=== PATIENT | female | born 1960 | race Caucasian/White ===

== ENCOUNTER 2016-08-14 13:52 | Emergency (ER) | payer OTHER ==
[2016-08-14 14:03] VITALS: RESP 16
--- NOTE | 2016-08-14 14:20 | EDPHY ---
H & P Stated Complaint: right foot and toe pain HPI/ROS: CHIEF COMPLAINT: Right small toe pain HISTORY OF PRESENT ILLNESS: This is a 55-year-old female who struck her foot on a long board less than 3 hours ago. She has right small toe pain and swelling that has not improved since the accident. She also describes some pain along the lateral aspect of her right foot. She has not taken any pain medication. She has tried elevating her foot, to no avail. She has pain with weight-bearing. She denies numbness or weakness. There were no other injuries. REVIEW OF SYSTEMS: A ten point review of systems was performed and is negative with the exception of the items mentioned in the HPI. - Personal History LMP (Females 10-55): Post Menopausal Current Tetanus Diphtheria and Acellular Pertussis (TDAP): Yes Tetanus Vaccine Date: within 10 years - Medical/Surgical History Hx Asthma: Yes Hx Chronic Respiratory Disease: No Hx Diabetes: No Hx Cardiac Disease: No Hx Renal Disease: No Hx Cirrhosis: No Hx Alcoholism: No Hx HIV/AIDS: No Hx Splenectomy or Spleen Trauma: No Other PMH: ASTHMA, occular hypertension - Social History Smoking Status: Never smoked Alcohol Use: Occasionally Additional Social History: She works in real estate. - Physical Exam Exam: General Appearance: Alert. Vital signs reviewed. Focused physical exam was performed. Blood pressure at triage was 142/97. Respiratory: Lungs are clear to auscultation; no wheezes, rales, or rhonchi. Cardiovascular: Regular rate and rhythm; no murmur, rub, or gallop. Skin: Warm and dry, no rashes on exposed skin, normal color. Back: Nontender to palpation over the thoracolumbar spine. Extremities: No pain to palpation of right hip, thigh, knee, tib/fib, ankle. Full active range of motion of the right knee and ankle. There is tenderness and swelling of the right small toe. Pulses: 2+ dorsalis pedis pulses bilaterally. Neurological: Alert and oriented. Moving all four extremities easily and equally. Sensation is normal to light touch over both lower extremities with the exception of a slight decrease in light touch over the lateral aspect of her right foot. Psychiatric: Normal affect. Constitutional: Initial Vital Signs Heart Rate 66 08/14/16 13:58 Respiratory Rate 16 08/14/16 13:58 Blood Pressure 142/97 H 08/14/16 13:58 O2 Sat (%) 98 08/14/16 13:58 O2 Delivery Mode Room Air Allergies/Adverse Reactions: codeine [Codeine] Allergy (Severe, Verified 08/14/16 14:02) Sulfa (Sulfonamide Antibiotics) [Sulfa(Sulfonamide Antibiotics)] Allergy ( Unknown, Verified 08/14/16 14:02) amoxicillin trihydrate [From Augmentin] Allergy (Verified 08/14/16 14:02) Androgenic Anabolic Steroid Allergy (Verified 08/14/16 14:02) cefprozil [From Cefzil] Allergy (Verified 08/14/16 14:02) VOMITS cephapirin sodium [From Cefadyl] Allergy (Verified 08/14/16 14:02) VOMITS erythromycin base [Erythromycin Base] Allergy (Verified 08/14/16 14:02) VOMITS potassium clavulanate [From Augmentin] Allergy (Verified 08/14/16 14:02) steroids Allergy (Uncoded 08/14/16 14:03) Home Medications: Medication Instructions Recorded Montelukast Sodium [Singulair] 5 mg PO 01/10/12 Eye Drops For Pressure 08/14/16 Nasal [place] 08/14/16 Medical Decision Making - Diagnostics Imaging Results: Imaging Impressions Foot X-Ray 08/14/16 14:08 Impression: Middle phalangeal fracture, fifth toe. ED Course/Re-evaluation: Right foot x-ray shows a fracture of the fifth toe, middle phalanx on the right. There is mild angulation, no displacement. 4th and 5th toes we edvin-taped. A postop shoe is being provided. She has seen Dr. Wheatley, podiatry, in the past and will likely follow up with either him or her primary care provider. Differential Diagnosis: I considered fracture, either open or closed, dislocation, sprain, contusion, and abrasion. Departure - Departure Disposition: Home, Routine, Self-Care Clinical Impression: Toe fracture, right Qualifiers: Encounter type: initial encounter Toe: lesser toe Fracture type: closed Phalanx : proximal Physeal involvement: not involving physis Qualified Code(s): S92.511A - Displaced fracture of proximal phalanx of right lesser toe(s), initial encounter for closed fracture Condition: Good Instructions: Toe Fracture (ED), RICE Therapy (ED) Additional Instructions: Adult Pain & Fever Control: We recommend Acetaminophen (Tylenol) and Ibuprofen (Motrin,Advil) for pain and fever control. When fever is high or pain severe, both drugs can be used at the same time, but at different intervals. Please note the time differences. Your dose is: Acetaminophen 650mg every 4 to 6 hours Ibuprofen 400mg every 8 hours with food OR . Note: do not take Acetaminophen with Hydrocodone (Vicodin, Lortab) or Oycodone (Percocet). These medications also contain Acetaminophen. No more than 3000mg of Acetaminophen should be taken in 24 hours (for an adult). You should follow up with your primary care physician. I am also providing a referral to a instructional support services director, to use if needed. Referrals: Helena Teran MD [Primary Care Provider] - As per Instructions Clifford Wheatley DPM [Doctor of Podiatric Medicine] - As per Instructions
[2016-08-14] MEDS ORDERED: IBUPROFEN 600 MG TAB PO ONE (15:03)
[2016-08-14 15:04] VITALS: BP 136/91; PULSE 61; TEMP 97.9; O2SAT 96
== END 2016-08-14 15:03 | disposition home or self-care (01) ==
LOC: CED 13:52
DX: S92.511A Displaced fracture of proximal phalanx of right lesser toe(s), initial encounter for closed fracture (principal); J45.909 Unspecified asthma, uncomplicated; W22.8XXA Striking against or struck by other objects, initial encounter
CPT/HCPCS: 73630-PO; L3260

== ENCOUNTER → 2016-10-04 | Outpatient (CLI) | payer OTHER | LOC: BMCIMAGING 15:57 | PROVIDERS: ATTEND Family Medicine | DX: S59.902A Unspecified injury of left elbow, initial encounter (principal); S69.92XA Unspecified injury of left wrist, hand and finger(s), initial encounter; V19.9XXA Pedal cyclist (driver) (passenger) injured in unspecified traffic accident, initial encounter; Y93.55 Activity, bike riding ==

== ENCOUNTER → 2017-11-12 | Outpatient (CLI) | payer OTHER ==
[~2017-11-12] MED LIST: BUPIVACAINE 0.25% 30 ML SDV ONE
== END ==
LOC: FIMAGING 11:30
PROVIDERS: ATTEND Orthopaedic Surgery Hand Surgery
PROC: 3E0U3GC Introduction of Other Therapeutic Substance into Joints, Percutaneous Approach (ICD-10-PCS; principal; 2017-11-12)
DX: M77.01 Medial epicondylitis, right elbow (principal)

== ENCOUNTER 2018-05-29 22:49 | Emergency (ER) | payer OTHER ==
[2018-05-29] MEDS ORDERED: OXYCODONE/APAP 5/325 TAB PO ONE (23:19)
--- NOTE | 2018-05-29 23:24 | EDPHY ---
H & P Time Seen by Provider: 05/29/18 23:08 HPI/ROS: CHIEF COMPLAINT: Right Achilles and ankle pain post long hike HISTORY OF PRESENT ILLNESS: 57-year-old female generally healthy complaining of atraumatic right ankle pain. She describes hiking up [facility] today, she denies trauma or fall and describes a normal hike. She went home, and over the next few hours noticed slow onset, progressive right ankle pain particularly in the Achilles tendon region. She is unable to bear weight now. She denies: Discoloration, trauma or fall, calf pain, paresthesia. PHYSICAL EXAM (Prior to examination, patient consented to physical exam, hands were washed and my usual and customary physical exam procedures followed) 1) GENERAL: Well-developed, well-nourished, alert and oriented. Appears to be in no acute distress. 2) HEAD: Normocephalic 3) HEENT: Pupils equal, round, reactive to light bilaterally. 4) LUNGS: Breathing comfortably. 5) MUSCULOSKELETAL: The tender to palpation right Achilles. Tender to palpation bilateral malleoli. No deformity or angulation. No crepitus. No discoloration. No skin changes. Normal color. Normal temperature. Soft compartments to calf and foot. No plantar pain. proximal tibia and fibula nontender .5th MT nontender negative Almeida test, compartments soft 6) SKIN: Intact no skin changes 7) VASCULAR: DP,PT pulses and cap refill present and brisk DIFFERENTIAL DIAGNOSIS: in no particular order including but not limited to fracture, sprain, compartment syndrome Xray of the right ankle interpreted by myself: no definitive acute osseous abnormality Procedure: Crutches indications for crutch use discussed with patient. Patient fitted for crutches by ER staff. Observed ambulating with crutches. I think the patient has the capacity to safely use crutches. Usual and customary crutch walking precautions provided Procedure: Splint A case boot splint was applied by ER sterile technician. After application of the splint I returned and re-examined the patient. The splint was adequately immobilizing the joint and distal to the splint the patient's circulation and sensation were intact. Patient shows no signs of compartment syndrome. Was given orthopedic precautions. Smoking Status: Never smoked Constitutional: Initial Vital Signs Temperature (C) 36.6 C 05/29/18 23:03 Heart Rate 99 05/29/18 23:03 Respiratory Rate 16 05/29/18 23:03 Blood Pressure 132/77 H 05/29/18 23:03 O2 Sat (%) 97 05/29/18 23:03 O2 Delivery Mode Room Air Allergies/Adverse Reactions: codeine [Codeine] Allergy (Severe, Verified 08/14/16 14:02) Sulfa (Sulfonamide Antibiotics) [Sulfa(Sulfonamide Antibiotics)] Allergy ( Unknown, Verified 08/14/16 14:02) amoxicillin trihydrate [From Augmentin] Allergy (Verified 08/14/16 14:02) Androgenic Anabolic Steroid Allergy (Verified 08/14/16 14:02) cefprozil [From Cefzil] Allergy (Verified 08/14/16 14:02) VOMITS cephapirin sodium [From Cefadyl] Allergy (Verified 08/14/16 14:02) VOMITS erythromycin base [Erythromycin Base] Allergy (Verified 08/14/16 14:02) VOMITS Penicillins Allergy (Verified 05/29/18 23:02) potassium clavulanate [From Augmentin] Allergy (Verified 08/14/16 14:02) steroids Allergy (Uncoded 08/14/16 14:03) Home Medications: Medication Instructions Recorded Montelukast Sodium [Singulair] 5 mg PO 01/10/12 Eye Drops For Pressure 08/14/16 Nasal [place] 08/14/16 oxyCODONE/APAP 5/325 [Percocet 1 tab PO Q6 #10 tab 05/30/18 5/325] MDM/Departure - MDM Medications Given: Discontinued Medications Oxycodone/Acetaminophen (Percocet 5/325) 2 tab PO EDNOW ONE Stop: 05/29/18 23:20 Last Admin: 05/29/18 23:43 Dose: 2 tab Oxycodone/Acetaminophen (Percocet 5/325mg Prepack#4) 1 btl TAKEHOME EDNOW ONE Stop: 05/30/18 00:17 Last Admin: 05/30/18 00:20 Dose: 1 btl ED Course/Re-evaluation: Doubt compartment syndrome, doubt septic arthritis. I reviewed the patient's x- ray showing no definitive acute osseous abnormality. Discussed limitations of x -ray. Informed that non osseous injury not ruled out. Given the patient's history of long hike today, I discussed with her more than likely Achilles tendinitis, more than likely non osseous pathology.. At this time I think the patient can be discharged however I recommended close follow-up with orthopedics. She is planning on following up with Dr. Mehul Kapadia. She has been given Case boot, crutches, recommended elevation, cold packs, NSAIDs, analgesia. She has a listed codeine allergy but notes that she is able tolerate Percocet well. Patient feels comfortable being discharged. All questions and concerns addressed by myself. Patient given my usual and customary discharge precautions and instructions regarding their clinical impression. Care of patient under supervision of primary supervising physician Dr Villavicencio . - Depart Disposition: Home, Routine, Self-Care Clinical Impression: Walking, marching and hiking, Left Achilles tendinitis Condition: Good Instructions: Oxycodone/Acetaminophen (By mouth), Tendinitis (ED) Additional Instructions: Return to the ER immediately if you experience discoloration, have worsening pain, numbness, tingling, or any other symptoms that concern you. If you received x-rays in the emergency department today, be advised, that ligamentous , tendon, muscular, and other non-bony injury cannot be fully ruled out. Try to keep your affected extremity elevated above the level of your chest, and keep cold packs on the affected area, for the next 48 hours. Prescriptions: oxyCODONE/APAP [Percocet ] 1 tab PO Q6 #10 tab Referrals: Mehul Kapadia MD [Medical Doctor] - 2-3 days, call for appt.
[2018-05-29 23:40] VITALS: BP 118/81
[2018-05-30] MEDS ORDERED: OXYCODONE/APAP 5/325MG PREPACK#4 BTL TAKEHOME ONE (00:16)
== END 2018-05-30 00:25 | disposition home or self-care (01) ==
DX: M76.61 Achilles tendinitis, right leg (principal); X50.3XXA Overexertion from repetitive movements, initial encounter; Y93.01 Activity, walking, marching and hiking; Y92.828 Other wilderness area as the place of occurrence of the external cause
CPT/HCPCS: L4386